=== PATIENT | male | born 1935 | race Caucasian/White ===

== ENCOUNTER → 2016-06-25 | Outpatient (CLI) | payer OTHER, MEDICARE | LOC: FIMAGING 18:18 | PROVIDERS: ATTEND Registered Nurse | DX: R41.82 Altered mental status, unspecified (principal) ==

== ENCOUNTER → 2016-07-04 | Outpatient (CLI) | payer OTHER, MEDICARE | LOC: FIMAGING 11:36 | PROVIDERS: ATTEND Family Medicine | DX: G31.9 Degenerative disease of nervous system, unspecified (principal); R41.82 Altered mental status, unspecified ==

== ENCOUNTER → 2016-08-20 | Outpatient (CLI) | payer OTHER, MEDICARE | LOC: FIMAGING 15:31 | PROVIDERS: ATTEND Internal Medicine Nephrology | DX: N28.9 Disorder of kidney and ureter, unspecified (principal) ==

== ENCOUNTER → 2016-09-02 | Outpatient (CLI) | payer OTHER, MEDICARE ==
[~2016-09-02] MED LIST: GADOBUTROL 10 ML VIAL IVP ONE
== END ==
LOC: FIMAGING 09:52
PROVIDERS: ATTEND Family Medicine
DX: G31.9 Degenerative disease of nervous system, unspecified (principal); G44.52 New daily persistent headache (NDPH); G30.9 Alzheimer's disease, unspecified; Z85.820 Personal history of malignant melanoma of skin
CPT/HCPCS: 70553; A9585

== ENCOUNTER → 2016-10-19 | Outpatient (CLI) | payer OTHER, MEDICARE | LOC: FIMAGING 13:34 | PROVIDERS: ATTEND Family Medicine | DX: L03.116 Cellulitis of left lower limb (principal); R60.0 Localized edema ==